=== PATIENT | male | born 1960 | race Caucasian/White ===

== ENCOUNTER 2016-10-01 07:37 | Inpatient (IN) | payer MEDICARE ==
--- NOTE | ~2016-10-01 | BMI ---
[facility] Nutrition Therapy DATE: 10/04/16 Patient: STACIA SANTANA Physician: ANAHI Address: [address] [place] [address] Room/Bed: [address], Zip: [place] [address] Admit Date: 10/01/16 Date of : 60 Height: 5 9 Weight: 268 122 HIGH BMI NOTE: DX: 56 YO MALE ADMITTED FOR NEW ONSET AFIB ANTHROPOMETRICS: HT: 69" WT: 132 KG BMI: 43 INTERVENTION: 1. HEART HEALTHY/ RENAL/ LOW POTASSIUM DIET RECOMMENDATIONS: 1. CONTINUE CURRENT DIET TOLERATED IN ORDER TO PROMOTE GRADUAL WEIGHT LOSS. Respectfully, TISHA NARAYAN RD, LD Food and Nutritional Services [facility] cc: client file
--- NOTE | ~2016-10-01 | US136 ---
[facility] A Service of [facility] & [facility] RADIOLOGY TEXT RESULTS PATIENT: STACIA SANTANA LOCATION: [address] : 60 UNIT #: [id number] AGE: [address]: Goran Garland MD SEX: M ORDER DR: [id number] [facility] [address] [facility]. [place], [place] [address] [id number] I MR#: [id number] Acc #: [id number] NAME: STACIA SANTANA : 1960 SEX: M STUDY DATE/TIME: 10/03/2016 12:20 UNIT: [facility] ROOM: [facility] STUDY DESCRIPTION: US U/L Ext Art Study Ltd Bilat Attending Physician: Goran Garland M.D. Ordering Physician: Ricardo Nolen M.D. Primary Care Physician: Primary Care Physician No MEDICAL IMAGING REPORT This report is preliminary unless electronic signature is present EXAM Bilateral ankle-brachial indices, 10/03/2016 HISTORY Foot ulcers. Diabetes. TIA 7 years ago. Neuropathy. FINDINGS The patient has a fistula in the right arm and two IVs in the left arm and hence a brachial pressure could not be obtained. Waveforms in the right ankle at the dorsalis pedis are biphasic and dampened waveforms are seen in the left dorsalis pedis. Posterior tibial artery waveforms could not be obtained. No signals could be obtained at the posterior tibial arteries. Pressure at the dorsalis pedis is 106 mmHg and toe pressure on the right is 73 mmHg. On the left side, the dorsalis pedis pressure is non-compressible and great toe pressure is 58. IMPRESSION This is a limited study because of inability to check the blood pressure in the upper arms. Waveforms indicate possibly mild to moderate disease in the right side and moderate disease in the left side. The vessels are noncompressible at the left ankle. Toe pressures indicate adequate perfusion in the right foot and diminished perfusion in the left foot. Clinical correlation recommended. Dictated by... Conor Gracia M.D. THIS IS AN ELECTRONICALLY VERIFIED REPORT Conor Gracia M.D. at 10/05/2016 9:07 AM Marva TD: 10/04/2016 19:19 [facility]. [facility] A Service of [facility] RADIOLOGY TEXT RESULTS PATIENT: STACIA SANTANA LOCATION: [address] : 60 UNIT #: [id number] AGE: [address]: Goran Garland MD SEX: M ORDER DR: JOB #: [id number] MEDICAL IMAGING REPORT COPY
--- NOTE | ~2016-10-01 | CT71 ---
[facility] A Service of [facility] RADIOLOGY TEXT RESULTS PATIENT: STACIA SANTANA LOCATION: [facility] 571-01 : 60 UNIT #: [id number] AGE: [address]: Goran Garland MD SEX: M ORDER DR: [id number] [facility] [address] [facility]. [place], [place] [address] [id number] I MR#: [id number] Acc #: [id number] NAME: STACIA SANTANA : 1960 SEX: M STUDY DATE/TIME: 10/02/2016 19:06 UNIT: [facility] ROOM: [facility] STUDY DESCRIPTION: CT Head Wo Contrast Attending Physician: Goran Garland M.D. Ordering Physician: Atiya Lowry M.D. Primary Care Physician: No Primary Care Physician MEDICAL IMAGING REPORT This report is preliminary unless electronic signature is present EXAM CT brain without contrast HISTORY Fell and hit left side of head yesterday. Left side head pain today. TECHNIQUE This CT exam was performed with one or more of the following radiation dose reduction techniques: automatic exposure control, adjustment of mA and/or kV according to patient size, and iterative reconstruction. FINDINGS CT brain without contrast is partly limited by motion. Moderate chronic ischemic changes in the deep white matter bilaterally. Mild generalized cerebral cortical atrophy. No intracranial hemorrhage, mass, or edema. No midline shift or extraaxial fluid collection. Opacification of several inferior left and right mastoid air cells. Mild mucosal thickening in the posterior right maxillary sinus. IMPRESSION 1. No acute findings. 2. Mild generalized cerebral cortical atrophy and chronic ischemic changes in the deep white matter bilaterally. Dictated by... Michele Smart M.D. THIS IS AN ELECTRONICALLY VERIFIED REPORT Michele Smart M.D. at 10/03/2016 1:58 PM TEODORO/renan TD: 10/03/2016 12:13 [facility] A Service of [facility] RADIOLOGY TEXT RESULTS PATIENT: STACIA SANTANA [facility] [place] [address] [facility] [id number] : 60 UNIT #: [id number] AGE: [address]: Goran Garland MD SEX: M ORDER DR: KURT #: [id number] MEDICAL IMAGING REPORT COPY
--- NOTE | ~2016-10-01 | DS ---
Unit #: [id number] #: [id number] Patient: STACIA SANTANA [id number] [address] [address] [id number] I MR#: [id number] NAME: STACIA SANTANA ROOM: [facility] Age: 56 Sex: M Admission Date: 10/01/2016 : 1960 Discharge Date: 10/13/2016 Attending Physician: Goran Garland M.D. Primary Care Physician: Mila Primary Care Physician DISCHARGE SUMMARY To rehab facility on 10/13/2016 after hemodialysis. Patient has a pretty length stay in the hospital. DISCHARGE DIAGNOSES 1. Cardiogenic shock, which is resolved. 2. End stage cardiomyopathy with ejection fraction of 10% to 15%. 3. End stage renal disease on hemodialysis. 4. Hypoglycemia with diagnosis of diabetes mellitus. 5. Atrial fibrillation with controlled right on anticoagulation therapy with Coumadin. 6. Angina pectoris with history of coronary artery disease, status post percutaneous coronary intervention and stent placement about 7 years ago. 7. History of deep venous thrombosis and pulmonary embolism. Patient has an inferior vena cava filter. 8. 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 9. Peripheral vascular disease. 10. History of previous stroke with minimal residual. 11. Over anticoagulation on admission, which is resolved. 12. History of chronic wounds. 13. Obstructive sleep apnea but unable to use CPAP. 14. Morbid obesity with body mass index of 42. 15. Reformed smoker. 16. Headache on admission, status post CT scan, which was normal, which is improved. DISCHARGE MEDICATIONS 1. Hydrocodone/acetaminophen 5/325 q.8 p.r.n. 2. Protonix 40 mg b.i.d. 3. ProAmatine 5 mg p.o. 3 times a day with meal. 4. Milk of magnesia 30 mL p.o. daily. 5. Colace 100 mg twice a day. 6. Lopressor 12.5 mg twice a day. 7. Benadryl 25 mg q.8 p.r.n. 8. Coumadin 2.5 mg daily. 9. Bactroban topically twice a day. CONSULTANTS DURING HOSPITALIZATION Dr. Jose from cardiology services; Dr. Duncan Reid from vascular surgery; Dr. Teran and Dr. Vera from pulmonary services; Dr. Nolen from ortho services. Unit #: [id number] #: [id number] Patient: STACIA SANTANA LAB WORKUP ON DISCHARGE Sodium 136, potassium 4.6, chloride 101, BUN 37, creatinine 3.6, glucose 148. PT/INR is 19.7 and 1.8. WBC 12.6, hemoglobin 10.5, hematocrit 34.3, platelet count of 157. C. diff which was done on 10/11/2016 was negative. PROCEDURE PERFORMED DURING HOSPITALIZATION Echocardiogram, which was done on 10/01/2016, which shows left ventricle systolic function is severely reduced with left ventricular ejection fraction of 10%, moderately dilated left atrium, aortic stenosis, small pericardial effusion versus fat tissue. HOSPITAL COURSE Please note, patient was admitted on 10/01/[address] Garland. Please refer to H and P for history and physical. The patient had a fall at home. That is why he came to the hospital and was found to be in atrial fibrillation with rapid ventricular rate. Dr. Duff was consulted. Patient's Coumadin was held because it was very much elevated on admission. The patient was started on amiodarone. 2D echocardiogram was done, which showed ejection fraction of 10% to 15%. On 10/02/2016 the patient's amiodarone had been increased and 2 units of fresh frozen plasma was given because of elevated INR. The patient was transferred to ICU because of cardiogenic shock. IV dobutamine was started. Metoprolol was discontinued at this time. Dr. Teran was consulted and placed the lines. Patient was in ICU for a few days and he has decide for DNR status and does not want further workup. Patient does have a history of end stage renal disease and continued to have hemodialysis done as per renal. The patient will need to schedule followup with Dr. Donny Koroma after discharge. May need his (1) revision. Patient had headache on admission and because of elevated INR, CT scan of the head was done, which was negative. Patient seems to be stable at this time. Patient was also consulted by Dr. Nolen for left lower extremity cellulitis and dry gangrene. The patient does have a third toe dry gangrene with ulcers. He has peripheral vascular disease. Per cardiology patient is high risk for any surgical procedure. Patient may need to continue wound care and follow with Dr. Nolen as needed. The patient is stable at this and is being discharged to rehab facility. PHYSICAL EXAMINATION VITAL SIGNS: On discharge blood pressure 113/43, respiratory rate 18, pulse is 87, temperature 97.5. CHEST: Has decreased air entry bilateral. CVS: S1 and S2 positive on (2) rhythm. ABDOMEN: Obese. EXTREMITIES: Edema is present. DISCHARGE INSTRUCTIONS 1. Patient is being discharge to rehab facility after hemodialysis today. 2. Medication as per med rec. 3. Dr. Galicia to follow the patient at rehab. 4. Continue hemodialysis as per renal. From what I understand, the patient will be using [employer] for transportation. 5. PT and OT at rehab. 6. PT/INR to be done in a.m. Unit #: [id number] #: [id number] Patient: STACIA SANTANA 7. CBC and BMP in two to three days. 8. Patient's code status is DNR. Dictated by... Atiya Lowry M.D. Itz TD: 10/13/2016 12:58 JOB #: [id number] DISCHARGE SUMMARY X Atiya Lowry MD X DISCHARGE SUMMARY
--- NOTE | ~2016-10-01 | CR72 ---
[facility] A Service of [facility] & [facility] RADIOLOGY TEXT RESULTS PATIENT: STACIA SANTANA LOCATION: [address] : 60 UNIT #: [id number] AGE: [address]: Goran Garland MD SEX: M ORDER DR: [id number] [facility] [address] [facility]. [place], [place] [address] [id number] I MR#: [id number] Acc #: [id number] NAME: STACIA SANTANA : 1960 SEX: M STUDY DATE/TIME: 10/03/2016 17:05 UNIT: [facility] ROOM: [facility] STUDY DESCRIPTION: CR Chest Single View Portable Attending Physician: Goran Garland M.D. Ordering Physician: Andrea Teran M.D. Primary Care Physician: Primary Care Physician No MEDICAL IMAGING REPORT This report is preliminary unless electronic signature is present EXAM Portable chest HISTORY Line placement today. FINDINGS Transversely oriented large bore catheter projected over the upper mediastinum extends from the left upper chest to the right upper mediastinum. The tip overlies the level of the right central brachiocephalic vein. There is a wall stent in the upper mediastinum extending from approximately the level of the central left brachiocephalic vein to the upper SVC. Low lung volumes. No pulmonary infiltrates. No significant change compared to 10/01/2016. Dictated by... Michele Smart M.D. THIS IS AN ELECTRONICALLY VERIFIED REPORT Michele Smart M.D. at 10/04/2016 2:18 PM TEODORO/brown TD: 10/04/2016 08:18 JOB #: [id number] MEDICAL IMAGING REPORT COPY
--- NOTE | ~2016-10-01 | EKG ---
PATIENT: MAX, STACIA UNIT #: [id number] Ventricular Rate: 119 BPM Atrial Rate: 127 BPM QRS Duration: 100 ms Q-T Interval: 320 ms QTC Calculation(Bezet): 450 ms Calculated R Rowley: 23 degrees Calculated T Rowley: 170 degrees Diagnosis Line: Atrial fibrillation with rapid ventricular Diagnosis Line: response Diagnosis Line: ST and T wave abnormality, consider lateral ischemia Diagnosis Line: Abnormal ECG Diagnosis Line: When compared with ECG of 08-JUL-2016 09:03, Diagnosis Line: Atrial fibrillation has replaced Sinus rhythm Diagnosis Line: Nonspecific T wave abnormality now evident in Diagnosis Line: Inferior leads Diagnosis Line: T wave inversion more evident in Anterolateral Diagnosis Line: leads Diagnosis Line: [facility] Diagnosis Line: Confirmed by SARA BULLARD MD ([id number]) on 10/02/2016 Diagnosis Line: 5:54:46 PM INTERPRETING MD: JUAN MIGUEL GUIDRY
--- NOTE | ~2016-10-01 | OR ---
Unit #: [id number] #: [id number] Patient: STACIA SANTANA [id number] [address] [address] [id number] I MR#: [id number] NAME: STACIA SANTANA ROOM: [facility] Date of Procedure: 10/03/2016 Admission Date: 10/01/2016 Surgeon: Inna Teran M.D. : 1960 Attending Physician: Goran Garland M.D. Primary Care Physician: Mila Primary Care Physician PROCEDURE OPERATIVE NOTE PREOPERATIVE DIAGNOSIS Cardiogenic shock. PROCEDURE PERFORMED Left femoral central venous catheter placement with ultrasound guidance. INDICATION FOR PROCEDURE Cardiogenic shock. COMPLICATIONS None. DESCRIPTION OF THE PROCEDURE An informed consent was obtained from the patient himself after explaining the benefit and risks of this procedure. The patient was prepped and positioned in proper way and chlorhexidine was applied to the left femoral area. Then, with the ultrasound guidance, a needle was inserted in the left femoral vein until blood flow was obtained and a guidewire was inserted and the needle was removed. Then, a dilator was used to create a tract and then the catheter was inserted over the guidewire and the guidewire was removed. The catheter was flushed appropriately and sutured in place. No need for chest x-ray as this is a femoral line. Dictated by... Inna Teran M.D. EA/lashell TD: 10/04/2016 06:01 JOB #: [id number] Unit #: [id number] #: [id number] Patient: STACIA SANTANA PROCEDURE OPERATIVE NOTE X INNA SALAZAR MD X PROCEDURE OPERATIVE NOTE
--- NOTE | ~2016-10-01 | CR7 ---
[facility] A Service of [facility] / [facility] RADIOLOGY TEXT RESULTS PATIENT: STACIA SANTANA LOCATION: [place] [address] : 60 UNIT #: [id number] AGE: [address]: Goran Garland MD SEX: M ORDER DR: [id number] [facility] [address] [facility]. [place], [place] [address] [id number] I MR#: [id number] Acc #: [id number] NAME: STACIA SANTANA : 1960 SEX: M STUDY DATE/TIME: 10/13/2016 20:51 UNIT: [facility] ROOM: [facility] STUDY DESCRIPTION: CR Abdomen Single AP View Attending Physician: Goran Garland M.D. Ordering Physician: Goran Garland M.D. Primary Care Physician: Primary Care Physician No MEDICAL IMAGING REPORT This report is preliminary unless electronic signature is present EXAM Abdomen single view HISTORY Rule out small bowel obstruction. Abdominal pain started today. COMMENT 5 supine films of the abdomen are submitted for review. Study is limited by obesity. Please be aware that supine imaging does not evaluate for bowel obstruction since it does not evaluate for air fluid levels. Study won't evaluate for free air. There is probably colonic gas and stool at least to the sigmoid colon level possibly to the level of the rectum. No loops of bowel with gaseous distention are appreciated. No suspicious findings for obstruction on the supine images. Patient has an IVC filter and right upper quadrant surgical clips. Vascular calcifications are present. Visualized heart is enlarged and there is patchy airspace disease lower lungs. IMPRESSION These films are limited by the patient's morbid obesity. 5 supine images were obtained to cover the abdomen. Without an upright film, I cannot evaluate for free air or air-fluid level. No distended loops of bowel are definitely seen. Dictated by... Regina Nunn M.D. THIS IS AN ELECTRONICALLY VERIFIED REPORT [facility] A Service of [facility] / [facility] RADIOLOGY TEXT RESULTS PATIENT: STACIA SANTANA LOCATION: [facility]04-01 : [birth year] UNIT #: [id number] AGE: [address]: Goran Garland MD SEX: M ORDER DR: Regina Nunn M.D. at 10/14/2016 12:58 PM SAMANTHA/neo TD: 10/14/2016 10:51 JOB #: [id number] MEDICAL IMAGING REPORT COPY
--- NOTE | ~2016-10-01 | CO ---
Unit #: [id number] #: [id number] Patient: STACIA SANTANA [id number] [address] [address] [id number] I MR#: [id number] NAME: STACIA SANTANA ROOM: [facility] Age: 56 Sex: M Admission Date: 10/01/2016 : 1960 Attending Physician: Goran Garland M.D. Primary Care Physician: Mila Primary Care Physician Consultation Date: 10/03/2016 CONSULTATION REPORT REASON FOR CONSULT ICU management. HISTORY OF PRESENT ILLNESS This is a 56-year-old male with a past medical history significant for end stage renal disease and severe coronary artery disease who presented to the ICU as a transfer from the floor after he was found hypotensive and lethargic. The patient also has a history of DVT/PE and he is chronically on Coumadin. Upon presentation, his INR was 8 and currently it is in the range between 4 and 5. Earlier today, the patient received some narcotics and by the time he was evaluated by cardiology service he was noted to be hypotensive and lethargic. The patient was transferred to our ICU. His oxygen saturation was in the mid 70s but he was in no acute distress which probably explained by poor circulation at the pulse oximeter probe. Due to his history of severe vascular disease and the inaccurate blood pressure measurement, I elected to place a central line and arterial line for better monitoring of his vital signs. The patient denied any fever, chills or night sweats. No chest pain, no cough. The patient is just progressively getting fatigued and tired. He stated that at baseline he is able to get up and walk. He goes to [employer] and sometimes to baseball games. REVIEW OF SYSTEMS Twelve point review of systems were obtained and were negative except for what was mentioned in the HPI. PAST MEDICAL HISTORY 1. End stage renal disease. 2. Severe coronary artery disease. 3. Stroke with minimal residual. 4. PE/DVT. 5. Hypertension. 6. Diabetes. 7. Severe peripheral vascular disease. 8. Obstructive sleep apnea. PAST SURGICAL HISTORY 1. Multiple AV shunts and revision. Unit #: [id number] #: [id number] Patient: STACIA SANTANA 2. Cholecystectomy. 3. IVC filter. 4. PCI and stent about seven years ago. HOME MEDICATIONS 1. Coumadin. 2. Glucotrol. 3. Bactroban. 4. Clindamycin. 5. Librax. ALLERGIES Naproxen, IV contrast. SOCIAL HISTORY He ambulates with a cane, sometimes walker. He quit smoking in 1988. No history of drug abuse. FAMILY HISTORY Coronary artery disease. PHYSICAL EXAMINATION GENERAL: The patient is ill-appearing. VITAL SIGNS: After placing arterial line, showing a blood pressure of 127/72. HEENT: Atraumatic, normocephalic. PERRLA, EOMI. NECK: Supple. No JVD, no lymphadenopathy. CHEST: Decreased breath sounds bilaterally. HEART: S1, S2. No murmur, gallops or rubs. ABDOMEN: Soft, nontender. Bowel sounds positive. No hepatosplenomegaly. EXTREMITIES: Chronic venous stasis changes in the lower extremities. SKIN: No rashes. 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 No focal weakness. DIAGNOSTIC STUDIES LABORATORY: ABG - 7.32/51/222. Creatinine 6.7, sodium 133, white blood count 14.2. IMAGING: Chest x-ray didn't reveal any clear infiltrate to me. ASSESSMENT 1. Shock, likely cardiogenic. 2. Severe peripheral vascular disease. 3. Pulmonary embolus/deep venous thrombosis. 4. Atrial fibrillation with rapid ventricular response. 5. End stage renal disease. 6. Diabetes. 7. Hypertension. PLAN 1. The patient is ill-appearing and critical. Discussed code status with him and is a Full Code at this point. 2. Arterial line is measuring normal blood pressure. Will try to wean dopamine off as tolerated. 3. Bronchodilator and mucolytics. 4. Continue current antibiotics pending further sepsis workup. Unit #: [id number] #: [id number] Patient: STACIA SANTANA 5. Diabetes and blood pressure management. Dictated by... Marianna Gibson TD: 10/04/2016 06:13 JOB #: [id number] CONSULTATION REPORT X INNA SALAZAR MD CONSULTATION REPORT
--- NOTE | ~2016-10-01 | CR126 ---
[facility] A Service of [facility] & [facility] RADIOLOGY TEXT RESULTS PATIENT: STACIA SANTANA LOCATION: [address] : [birth year] UNIT #: [id number] AGE: [address]: Goran Garland MD SEX: M ORDER DR: [id number] [facility] [address] [facility]. [place], [place] [address] [id number] I MR#: [id number] Acc #: [id number] NAME: STACIA SANTANA : 1960 SEX: M STUDY DATE/TIME: 10/03/2016 15:08 UNIT: [facility] ROOM: [facility] STUDY DESCRIPTION: CR Foot Complete Min 3 View Lt Attending Physician: Goran Garland M.D. Ordering Physician: Ricardo Nolen M.D. Primary Care Physician: No Primary Care Physician MEDICAL IMAGING REPORT This report is preliminary unless electronic signature is present EXAM Left foot series 10/03/2016 HISTORY New onset atrial fibrillation with RVR, ulcers. New onset. Cough. Central line placement through the femoral artery, 3 days, fell, ulcers, pain, severe soft tissue swelling, soft tissue breakdown. FINDINGS AP, lateral and oblique radiographs of the left foot are presented. Diminished bony mineralization. No displaced fracture. The joint spaces appear intact. There is no indication of traumatic malalignment. Small plantar calcaneal spur. Extensive atherosclerotic arterial calcifications. Soft tissue swelling suggested dorsal aspect of the baj-qg-jrgopf foot. No soft tissue defect, subcutaneous air or radiodense foreign body. Dictated by... Roni Juarez M.D. THIS IS AN ELECTRONICALLY VERIFIED REPORT Roni Juarez M.D. at 10/04/2016 4:28 PM GETACHEW/lashell TD: 10/04/2016 09:25 JOB #: [id number] MEDICAL IMAGING REPORT COPY
--- NOTE | ~2016-10-01 | CO ---
Unit #: [id number] #: [id number] Patient: STACIA SANTANA [id number] [address] [address] [id number] I MR#: [id number] NAME: STACIA SANTANA ROOM: [facility]3 Age: 56 Sex: M Admission Date: 10/01/2016 : 1960 Attending Physician: Goran Garland M.D. CONSULTATION REPORT CHIEF COMPLAINT Left third toe gangrene. HISTORY OF PRESENT ILLNESS This is a 56-year-old male with multiple medical problems to include, end-stage renal disease, requiring dialysis; coronary artery disease, status post stent; diabetes; stroke; atrial fibrillation; history of pulmonary embolism. He is admitted for evaluation of multiple falls. During his hospitalization, he was noted to have gangrene of the left third toe and orthopedic consultation is requested. PAST MEDICAL HISTORY Remarkable for morbid obesity, coronary artery disease, diabetes, end-stage renal disease, hypertension, stroke, history of pulmonary embolism. PAST SURGICAL HISTORY IVC filter placement, cholecystectomy, arteriovenous shunt for dialysis, cardiac catheterization, left leg skin graft. HOME MEDICATIONS Coumadin, Glucotrol, Lotrisone cream, Bactroban, Diflucan, nystatin, probiotic, Levaquin, calcium acetate. ALLERGIES Naprosyn and contrast dye. SOCIAL HISTORY The patient lives at home with his morbidly obese brother. He denies tobacco or alcohol use. FAMILY HISTORY Unremarkable. PHYSICAL EXAMINATION GENERAL: This is an obese male, in no acute distress. He is alert, oriented, and cooperative. VITAL SIGNS: Height 5 feet 9 inches, weight 287 pounds. He is afebrile with stable vital signs. Evaluation of the left leg demonstrates marked venous stasis changes in the left leg with brawny edema. Pulses are not palpated. There was dry gangrene at the distal half of the third toe. There was also a dry gangrenous ulcer on the dorsal aspect of the second toe PIP joint as well as the tip of the hallux. The patient also has a necrotic ulcer on the Unit #: [id number] #: [id number] Patient: STACIA SANTANA posteromedial aspect of the calcaneus measuring about 1 cm. Sensation is decreased in a global distribution, but is partially intact. DIAGNOSTIC STUDIES IMAGING STUDIES: No x-rays are available for my review. LABORATORY RESULTS: Showed hemoglobin of 11.4, hematocrit 36.9, white blood cell count 14,200. IMPRESSION 1. Dry gangrene of left third toe with dry ulcerations at first and second toe. 2. Peripheral vascular disease. 3. End-stage renal disease. 4. Morbid obesity. 5. Marginal ambulator. The patient spends most of his time in an electric wheelchair. PLAN 1. Check left foot x-rays. 2. Arterial Dopplers. 3. We will follow during this hospitalization. The patient will most likely require amputation of a portion of the third toe and possibly first and second toes. We will make decisions based on his blood supply to the left leg. Dictated by.Marianna Correa/leighann TD: 10/03/2016 16:27 JOB #: [id number] CONSULTATION REPORT X Irma Nolen MD X CONSULTATION REPORT
--- NOTE | ~2016-10-01 | CR72 ---
[facility] A Service of [facility] & [facility] RADIOLOGY TEXT RESULTS PATIENT: STACIA SANTANA LOCATION: [facility] : 60 UNIT #: [id number] AGE: [address]: Goran Garland MD SEX: M ORDER DR: [id number] [facility] [address] [facility]. [place], [place] [address] [id number] I MR#: [id number] Acc #: [id number] NAME: STACIA SANTANA : 1960 SEX: M STUDY DATE/TIME: 10/07/2016 08:14 UNIT: [facility] ROOM: [facility] STUDY DESCRIPTION: CR Chest Single View Portable Attending Physician: Goran Garland M.D. Ordering Physician: Miller Duff M.D. Primary Care Physician: Primary Care Physician No MEDICAL IMAGING REPORT This report is preliminary unless electronic signature is present EXAM Chest portable 10/07/2016 0814 hours HISTORY 6-day history of shortness of air, cough and congestion. History of atrial fibrillation and respiratory failure. COMPARISON 10/03/2016 FINDINGS Single upright portable film demonstrates low lung volumes. There is a transversely oriented catheter extending from the left upper chest to the right upper chest with distal tip projecting over the upper SVC just inferior to the medial right clavicle unchanged from 10/03/2016. There is an obliquely oriented wall stent posterior to this which is also unchanged. There is stable cardiomegaly and tortuous aorta. There is perihilar and basilar vascular crowding with interstitial prominence favored to be a manifestation of low lung volumes. It is difficult to exclude an element of interstitial edema given this appearance. No effusions. IMPRESSION 1. Low lung volume film with stable cardiomegaly and tortuous aorta. There is perihilar and basilar vascular crowding with interstitial prominence. The interstitial prominence is favored to be a manifestation of low lung volumes although in this setting it is difficult to exclude mild edema. There is no effusion. 2. Stable positioning of transversely oriented catheter over the superior mediastinum. Dictated by... Daksha Godoy M.D. [facility] A Service of [facility] & [facility] RADIOLOGY TEXT RESULTS PATIENT: STACIA SANTANA LOCATION: [place] [address] : [birth year] UNIT #: [id number] AGE: [address]: Goran Garland MD SEX: M ORDER DR: THIS IS AN ELECTRONICALLY VERIFIED REPORT Daksha Godoy M.D. at 10/07/2016 11:43 AM Ramiro TD: 10/07/2016 09:20 JOB #: [id number] MEDICAL IMAGING REPORT COPY
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
--- NOTE | ~2016-10-01 | A ---
[facility] Nutrition Therapy DATE: 10/06/16 Patient: STACIA SANTANA Physician: ANAHI Address: [address] [place] [address] Room/Bed: [address], Zip: [place] [address] Admit Date: 10/01/16 Date of : 60 Height: 5 9 Weight: 279 127 NUTRITIONAL ASSESSMENT: REASON: EATING POORLY PER RN REPORT 56 yo male admitted for new onset Afib with RVR PMH: ESRD on HD, CAD s/p stent, stroke, HTN, DM, PVD, GENNA, cholecystectomy, EF <10% (per RN report), chronic wounds Anthropometrics: Ht: 69" Wt: 132 kg BMI: 43 Labs: Gluc 55 BUN 35 Creat 4.7 Alb 2.6 Phos 5.1 Accuchecks 64-95 HgbA1C 8.3 (from 10/03) GFR 13.8 Meds: Zofran, novolog, glucotrol, pepcid I/O & Bowel function: 1582/0, last BM Skin Integrity: Venous stasis Necrosis/ cellulitis left lower leg and foot Skin tear BUE/ right calf Excoriation/ open area to groin Edema: 2+ BLE 1+ hips/ abdomen/ trunk Estimated Nutrition Needs: Increased protein needs due to HD, skin breakdown. Assessment: Chart reviewed, events noted. Pt admitted for new onset Afib, with h/o multiple medical issues as noted above. RN reported to RD at rounds that the pt has not been eating for the past couple of days. Pt was ordered a heart healthy/ renal/ low K+ diet, which caused him to be unable to ordered the foods he wants. MD changed the pt to a regular diet to promote PO intake. Per RN report, the pt ate some oatmeal for breakfast, and consumed one piece of fried fish for lunch, which his family brought to him from [facility]. Per MD note, the pt cannot ambulate and would require toe amputations. Pt may able to tolerate the surgery well per RN report, due to his low EF and kidney function. Pt requested hospice consult for education visit, to explore his options. Low blood sugars noted. RD spoke with the pt and one of his family members at bedside. 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 Pt c/o heart burn, and RD discussed foods to avoid that may aggervate this. Pt only wishes to have certain foods, and reports having a poor appetite. Pt is unsure of any recent weight loss. RD suggested several nutritional supplements, and the pt [facility] Nutrition Therapy DATE: 10/06/16 Patient: STACIA SANTANA Physician: ANAHI Address: [address] [place] [address] Room/Bed: [address], Zip: [place] [address] Admit Date: 10/01/16 Date of : 60 Height: 5 9 Weight: [address] encouraged adequate protein/ calorie intake. Pt and family voiced understanding. Dx: Inadequate protein-energy intake RT decreased appetite AEB minimal intake reported by RN and family. Intervention: 1. Regular diet Monitoring, Evaluation and Goals: 1. Oral intake; tolerate >50-75% meals 2. Labs; WNL 3. Weight; prevent unintentional weight loss 4. Skin; promote healing 5. GI; promote bowel regularity Recommendations: 1. Continue regular diet per MD orders. 2. Pt would benefit from Nepro supplements BID; however, he declined all supplements offered. Pt is at moderate nutritional risk. RD will follow hospital course. Respectfully, TISHA NARAYAN, RD, LD [facility] cc: client file
--- NOTE | ~2016-10-01 | FU ---
[facility] Nutrition Therapy DATE: 10/11/16 Patient: STACIA SANTANA Physician: ANAHI Address: [address] [facility] Room/Bed: [address] [place] [address], Zip: [place] [address] Admit Date: 10/01/16 Date of : 60 Height: 5 9 Weight: 277 125.7 NUTRITION MONITORING/FOLLOW-UP: Reason: Nutrition follow-up Anthropometrics: Ht: 69", admission wt: 132 kg, current wt: 125.7 kg Labs: Glucose 22, POC 33-145, BUN 55, Creat 5.3, A1C 8.3 (10/03), GFR 12.0, Na/K WNL Meds: Zofran prn, Novolog (low SSI), PPI, Milk of Mg, Colace, Mag-al GI: LBM 10/11 Skin: Issues noted Estimated Nutrition Needs: Increased needs due to HD Assessment: Chart reviewed, events noted. Patient is on 2L nasal cannula, getting dialysis at time of RD visit to room. RD previously assessed due to poor oral intake. Patient on regular diet with 1500 ml fluid restriction. Hypoglycemic episodes noted. RN states patient ate 50% of breakfast this AM, unsure why hypoglycemia occured. Holding insulin with hypoglycemia, given D50 to bring glucose back up. RD suggested Ensure pudding to the patient per RN recs, but patient kept refusing saying "I have Jack cups to bring up my blood sugar." He also stated he did not care and that I could leave him alone. Previous nutrition goals not met, nutrition dx remains. Patient no longer appropriate to follow, will see after 10 days. See recs below. Dx: Inadequate protein energy intake r/t decreased appetite AEB PO intake 50% or less - ACTIVE, NO IMPROVEMENT Intervention: None at this time Monitoring, Evaluation and Goals: NOT MET 1. PO > 75% of meals. 2. Prevent unintentional weight loss. 3. Glucose WNL. Monitor: Per protocol, criteria to determine if above goals met Recommendations: 1. Continue regular diet, fluids per MD. Encourage adequate kcal/protein intake. Patient has continued to refuse all oral nutrition supplements at this time. [facility] Nutrition Therapy DATE: 10/11/16 Patient: STACIA SANTANA Physician: ANAHI Address: [address] [facility]/Bed: [address] [place] [address], Zip: [place] [address] Admit Date: 10/01/16 Date of : 60 Height: 5 9 Weight: 277 125.7 2. Hold insulin and treat hypoglycemia as needed. Treat with 15-30g carbs and recheck after 15 mins. If glucose still < 70 treat with another 15g carbs until > 70. Suggest endocrinology consult. 3. Please consult with any further nutritional needs. Status: Mild nutrition risk, will see again after 10 days Respectfully, Mary Lackey RD, LD Food and Nutritional Services [facility] cc: client file
--- NOTE | ~2016-10-01 | CR206 ---
[facility] A Service of [facility] & [facility] RADIOLOGY TEXT RESULTS PATIENT: STACIA SANTANA LOCATION: [facility] [id number] : 60 UNIT #: [id number] AGE: [address]: Goran Garland MD SEX: M ORDER DR: [id number] [facility] [address] [facility] [place] [facility]. [place], [place] [address] [id number] I MR#: [id number] Acc #: [id number] NAME: STACIA SANTANA : 1960 SEX: M STUDY DATE/TIME: 10/01/2016 7:43 UNIT: [facility] ROOM: 94603 STUDY DESCRIPTION: CR Pelvis 1 or 2 Views Attending Physician: Goran Garland M.D. Ordering Physician: Amol Young M.D. Primary Care Physician: No Primary Care Physician MEDICAL IMAGING REPORT This report is preliminary unless electronic signature is present EXAM Pelvis HISTORY Pelvic pain after falling earlier today. TECHNIQUE A single view of the pelvis was obtained. FINDINGS AP, supine examination of the pelvis shows satisfactory mineralization of the bony pelvis. The sacroiliac joints are normal. There is no indication of congenital defect, fracture, or dislocation at the articular anatomy of the sacral segments or of the hip joints. No malignant, lytic, or blastic change is present. IMPRESSION Normal pelvis. Dictated by... Rick Eagle M.D. THIS IS AN ELECTRONICALLY VERIFIED REPORT Rick Eagle M.D. at 10/01/2016 3:26 PM CONORF/rené TD: 10/01/2016 10:44 JOB #: [id number] MEDICAL IMAGING REPORT COPY
--- NOTE | ~2016-10-01 | OR ---
Unit #: [id number] #: [id number] Patient: STACIA SANTANA [id number] [address] [address] [id number] I MR#: [id number] NAME: STACIA SANTANA ROOM: [facility] Date of Procedure: 10/03/2016 Admission Date: 10/01/2016 Surgeon: Inna Teran M.D. : 1960 Attending Physician: Goran Garland M.D. Primary Care Physician: Mila Primary Care Physician PROCEDURE OPERATIVE NOTE PROCEDURE PERFORMED Left femoral arterial line placement with ultrasound guidance. INDICATION FOR PROCEDURE Vasculopathy and cardiogenic shock. DESCRIPTION OF THE PROCEDURE An informed consent was obtained from the patient after explaining the benefit and risk of this procedure. The patient's left groin was prepped and cleaned with chlorhexidine and then a needle was inserted in the left femoral artery until blood flow was obtained. Then, a guidewire was inserted and the needle was removed. Then, a catheter was inserted over the guidewire and the guidewire was removed eventually. A good waveform of the arterial line was obtained on the monitor and the line was sutured in place with no complication. Dictated by... Inna Teran M.D. EA/lashell TD: 10/04/2016 06:15 JOB #: [id number] PROCEDURE OPERATIVE NOTE X INNA SALAZAR MD PROCEDURE OPERATIVE NOTE
--- NOTE | ~2016-10-01 | US83 ---
[facility] A Service of [facility] RADIOLOGY TEXT RESULTS PATIENT: STACIA SANTANA LOCATION: [facility] [address] : 60 UNIT #: [id number] AGE: [address]: Goran Garland MD SEX: M ORDER DR: [id number] [facility] [address] [facility]. [place], [place] [address] [id number] I MR#: [id number] Acc #: [id number] NAME: STACIA SANTANA : 1960 SEX: M STUDY DATE/TIME: 10/11/2016 18:21 UNIT: [facility] ROOM: [facility] STUDY DESCRIPTION: US LE [employer] Attending Physician: Goran Garland M.D. Ordering Physician: Goran Garland M.D. Primary Care Physician: No Primary Care Physician MEDICAL IMAGING REPORT This report is preliminary unless electronic signature is present EXAM Left lower extremity doppler. HISTORY Left lower extremity pain and left inguinal pain after physical therapy approximately 2-3 days ago. Left femoral arterial line. TECHNIQUE Grayscale, color Doppler, and spectral Doppler ultrasound of the left inguinal region was performed. COMPARISON STUDIES No priors are available for comparison. FINDINGS There is a large anechoic fluid collection in the left medial and proximal thigh. This collection measures 13.5 x 3.6 x 4.6 cm. There is arterial flow within the proximal portion of the fluid collection. This is felt to be a hematoma with associated pseudoaneurysm. IMPRESSION Large 13-cm hypoechoic collection in the proximal and medial aspect of the left thigh. There is some arterial blood flow within the proximal portion of the collection, indicating a component of a pseudoaneurysm associated with this proximal thigh hematoma. Dictated by... Rene Moreland M.D. THIS IS AN ELECTRONICALLY VERIFIED REPORT Rene Moreland M.D. at 10/13/2016 12:22 PM [facility] A Service [facility] RADIOLOGY TEXT RESULTS PATIENT: STACIA SANTANA LOCATION: [facility] 5504-01 : [birth year] UNIT #: [id number] AGE: [address]: Goran Garland MD SEX: M ORDER DR: Josias TD: 10/12/2016 16:51 JOB #: [id number] MEDICAL IMAGING REPORT COPY
--- NOTE | ~2016-10-01 | CO ---
Unit #: [id number] #: [id number] Patient: MAX,STACIA [id number] [address] [place], [place] [address] [id number] I MR#: [id number] NAME: STACIA SANTANA ROOM: 571 Age: 56 Sex: M Admission Date: 10/01/2016 : 1960 Attending Physician: Goran Garland M.D. Primary Care Physician: Doris Consultation Date: 10/01/2016 CONSULTATION REPORT REASON FOR CONSULTATION Atrial fibrillation with rapid ventricular response and chest pain. HISTORY OF PRESENT ILLNESS This is a 56-year-old white male with history of end-stage renal disease, had previous PCI and stents about 7 years ago. He has had a stroke about that time with minimal residual, is on chronic anticoagulation therapy with Coumadin for PE and DVT in the past had IVC filter. He is a diabetic, hypertension, obstructive sleep apnea, obesity, who came to the hospital after experiencing a fall and was unable to get up. According to the patient, he got up this morning about 7:30, he went to the bathroom and then he stood up and proceeded to walk and his legs got weak and gave out. He fell on his buttocks. He was unable to pull himself up. He lives with a brother, who also has some health issues, they had to call EMS. They evaluate the patient and felt like he should come to the hospital to be evaluated for any injuries or problems. According to the patient, he denied any acute injury and x-rays do not indicate any fractures. He denies any dizziness, presyncope, or syncopal episodes to precipitate the episode. He denies any palpitations. No shortness of breath. The patient is having occasional substernal chest pain that radiates up to the neck. He said that has been going off and on every 2 to 3 days for about the last 2 weeks. He denies any diaphoresis, nausea, vomiting, diarrhea or abdominal pain with the episodes. He feels like he has been having some GI symptoms after eating a couple of meals he felt some tightness, pressure in his mid sternal at mid epigastric area. He said it usually resolves after a few minutes. He misses dialysis this past Tuesday, because of the weather conditions and he is due to have dialysis today. In the emergency room, the patient's blood pressure was 101/66, heart rate was 128, respirations 24, temperature 97.6, O2 saturation was 95% on room air. His EKG indicated atrial fibrillation with rapid ventricular response with nonspecific changes. The patient's initial cardiac enzymes are negative. His WBCs were 17.3, his BUN was 63, creatinine 7.9, potassium 5.7, his sodium is down to 124, his INR is 5.9. The patient was given a dose of 10 mg of IV Cardizem and then started on a drip and it was stopped due to his heart rate got down in the 90s, his blood pressures 90s and low 100 systolically. Cardiology has been asked to assist with evaluation and management. The patient just states he has not had any cardiac workup since his stents about 7 years ago and also he has never been told that he has an atrial fibrillation. The patient had been in the hospital here at [facility] this past 07/2016 for an extensive scrotal and perineal cellulitis and he had an EKG at that time and he was in normal Unit #: [id number] #: [id number] Patient: STACIA SANTANA sinus rhythm. PAST MEDICAL HISTORY 1. End-stage renal disease, on hemodialysis. 2. Coronary artery disease. 3. History of PCI and stents 7 years ago done at [facility]. 4. Previous stroke with minimal residual. 5. Chronic anticoagulation, history of pulmonary emboli and DVT, status post IVC filter. 6. Hypertension. 7. Diabetes mellitus, type 2. 8. Peripheral vascular disease. 9. History of chronic wounds. 10. Obstructive sleep apnea, but is unable to use CPAP. 11. On 07/20/2016 hospitalized for extensive scrotal and perineal cellulitis and he is still having wound care, but has improved. 12. Obesity 290 pounds with a BMI of 42. 13. Reformed smoker. PAST SURGICAL HISTORY 1. Multiple AV shunts and revision. 2. Cholecystectomy. 3. IVC filter for PE and DVTs. 4. Status post PCI and stent about 7 years ago at [facility]. HOME MEDICATIONS Coumadin 3 mg p.o. daily, Glucotrol 5 mg p.o. b.i.d., Bactroban topically b.i.d. on his cellulitis, clindamycin 300 mg p.o. every 6 hours, Librax one capsule p.o. t.i.d. before meals. ALLERGIES Naproxen from Aleve and IV contrast dye. SOCIAL HISTORY The patient lives with his brother. He ambulates with a cane, sometimes a walker and he uses a motorized wheelchair. He quit smoking in 1988. No alcohol or illicit drug abuse. FAMILY HISTORY There is coronary artery disease in his most of the siblings and his father. There is a malignancy in his family. REVIEW OF SYSTEMS See details in HPI. PHYSICAL EXAMINATION GENERAL: Mr. Santana is a 56-year-old white male, in no acute respiratory distress. He is awake, alert, and answers questions appropriately. VITAL SIGNS: Blood pressure is 101/66, heart rate 96, respirations 18, temperature 97.6, O2 saturation is 94% on room air. NECK: Trachea midline. No thyromegaly or lymphadenopathy. Normal carotid upstrokes. No jugular venous distention. HEART: S1, S2. Regular rate and rhythm. Soft systolic murmur at left sternal border. LUNGS: Diminished, otherwise clear. ABDOMEN: Obese, slightly firm, nontender, positive bowel sounds present. EXTREMITIES: Pedal pulses are very weak. His femoral pulses are palpable, but very weak. He has 2+ pedal edema. Unit #: [id number] #: [id number] Patient: STACIA SANTANA DIAGNOSTIC STUDIES LABORATORY RESULTS: Glucose is 287, BUN 63, creatinine 7.9, eGFR is 7.6, sodium 124, potassium 5.7, chloride is 85, CO2 of 22, calcium is 9.2, magnesium is 2.1, total protein 6.5, albumin 2.7, bilirubin total is 0.7, AST 22, ALT 16, alkaline phosphatase is 116. WBC is 17.3, hemoglobin is 11.8, hematocrit is 37.0, and platelets are 152. Initial cardiac enzymes; CK-MB is 5.8, troponin is less than 0.05. WBC 12.3, hemoglobin 11.8, hematocrit 37.0, platelets 152. Strep screen is negative. IMAGING STUDIES: Chest x-ray shows shallow inspiratory effort, stable cardiomegaly, no active disease. X-ray of his pelvis was normal, no fractures. CARDIOVASCULAR STUDIES: EKG shows atrial fibrillation with ventricular rate of 119 beats per minute, nonspecific ST-T wave abnormalities in lateral leads, poor R-wave progression. IMPRESSION 1. Status post fall. 2. Atrial fibrillation with rapid ventricular response, age undetermined. 3. Angina pectoralis, history of coronary artery disease, percutaneous coronary intervention and stent about 7 years ago. 4. Previous stroke, minimal residual. 5. Acute kidney disease, end-stage renal disease, on hemodialysis. 6. History of deep vein thrombosis and pulmonary embolism. He has an inferior vena cava filter. 7. Diabetes mellitus, type 2. 8. Hypertension. 9. History of chronic wounds. 10. Obesity 290 pounds, BMI 42. 11. Obstructive sleep apnea, unable to use the CPAP. 12. Reformed smoker. PLAN 1. Cardiology consult to assist with evaluation and management. 2. The patient's heart rate is better controlled after he is being on Cardizem and has stopped, his blood that was staying a little low in the 90s and low 100s systolically. We will attempt to give a very low dose of beta-dhaval, metoprolol 12.5 mg p.o. b.i.d. and also amiodarone 400 mg p.o. b.i.d. The patient has been on anticoagulations, so we will try to convert possibly with loading doses of amiodarone. 3. Obtain TSH and T4 and evaluate. 4. We will obtain records from [facility] including the cardiac cath report, which entails PCI along with the latest 2D echo, EKG, and last H and P and discharge summary. 5. Hold Coumadin today and tomorrow. We will monitor his pro-time and INR. On exam, there is no evidence of any acute bleeding. His hemoglobin and hematocrit stable. 6. Dr. Medellin will see the patient to manage his dialysis and plans for dialysis today. 7. With the patient complaining of his chest pain, it sounds likely he may have some blockages since his PCI and stents about 7 years ago. We will likely proceed to attempt to do a cardiac cath early next week. 8. Treatment for cellulitis per Dr. Garland. 9. Further recommendations pending per Dr. Duff. Unit #: [id number] #: [id number] Patient: STACIA SANTANA Thank you very much for allowing us to assist in the care. Dictated by... Jackelin Santamaria A.P.R.N. for Marianna Willard/leighann TD: 10/02/2016 04:18 JOB #: [id number] CONSULTATION REPORT X Jackelin Santamaria APRN X CONSULTATION REPORT
--- NOTE | ~2016-10-01 | DS ---
Unit #: [id number] #: [id number] Patient: STACIA SANTANA [id number] [address] [place], [place] [address] [id number] I MR#: [id number] NAME: STACIA SANTANA ROOM: [facility] Age: 56 Sex: M Admission Date: 10/01/2016 : 1960 Discharge Date: 10/18/2016 Attending Physician: Goran Garland M.D. DISCHARGE SUMMARY ADDENDUM Patient was to be discharged on October 13, 2016, but that evening he started having nausea, vomiting, and diarrhea. The patient's discharge was cancelled and was given Phenergan. Clostridium difficile in the stool was done which was negative. Patient was to be discharged on Tuesday, but there was no rehab facility bed available. Patient is stable at this time and is going through his hemodialysis, and he will be discharged home after his hemodialysis. DIAGNOSTIC STUDIES LABORATORY: Labs on discharge: PT is 17.4 and INR is 1.6. Sodium 126, potassium 5.3, BUN 54, and creatinine 4.4. These labs were from October 15. CBC from October 15 showed WBC 12.8, hemoglobin 10.9, hematocrit 35.1, and platelet count of 178,000. IMAGING: Abdominal x-ray was done on October 13, 2016, because of nausea and vomiting. It showed these films are limited because of the obesity. There is no air fluid level. No distended loops of bowel are definitely seen. Please note, on patient's medications, the only change we have from the previous Discharge Summary is Coumadin which is going to be increased to 3 mg as his INR is subtherapeutic. Please note that Colace and Milk of Magnesia are to be discontinued as patient is having diarrhea. A prescription for hydrocodone has been written. PHYSICAL EXAMINATION ON DISCHARGE VITAL SIGNS: Blood pressure is 123/66, respiratory rate 18, pulse 98, and temperature 97.5. CHEST: Decreased air entry bilaterally. CARDIOVASCULAR: S1 and S2 positive. ABDOMEN: Obese. EXTREMITIES: Edema is present. DISCHARGE INSTRUCTIONS Almost the same as the previous Discharge Summary. 1. Patient needs to get PT-INR done every two days, and level of INR needs to be 2. 2. Patient will need to continue hemodialysis as per Renal. Patient will have [facility] transportation for hemodialysis. 3. Medications as per medication reconciliation. 4. Please note, patient's code status is Do Not Resuscitate. 5. Please note, we have had hospice evaluation done, and they have Unit #: [id number] #: [id number] Patient: STACIA SANTANA denied inpatient at this time. Patient and patient's family are pretty aware of patient's poor prognosis. 1. Dictated by... Marianna Valencia/kun TD: 10/18/2016 16:40 JOB #: [id number] DISCHARGE SUMMARY Page 1 of 1 X Atiya Lowry MD X DISCHARGE SUMMARY
--- NOTE | ~2016-10-01 | EKG ---
PATIENT: MAX STACIA UNIT #: [id number] Ventricular Rate: 105 BPM Atrial Rate: 83 BPM QRS Duration: 104 ms Q-T Interval: 364 ms QTC Calculation(Bezet): 481 ms Calculated R Bomoseen: 21 degrees Calculated T Bomoseen: 150 degrees Diagnosis Line: Atrial fibrillation with rapid ventricular Diagnosis Line: response Diagnosis Line: ST and T wave abnormality, consider lateral ischemia Diagnosis Line: Abnormal ECG Diagnosis Line: When compared with ECG of 01-OCT-2016 07:45, Diagnosis Line: (unconfirmed) Diagnosis Line: No significant change was found Diagnosis Line: Confirmed by SARA BULLARD MD ([id number]) on 10/02/2016 Diagnosis Line: 6:05:48 PM INTERPRETING MD: JUAN MIGUEL GUIDRY
--- NOTE | ~2016-10-01 | CR72 ---
[facility] A Service of [facility] & [facility] RADIOLOGY TEXT RESULTS PATIENT: STACIA SANTANA LOCATION: [place] [address] : [birth year] UNIT #: [id number] AGE: [address]: Goran Garland MD SEX: M ORDER DR: [id number] [facility] [address] [place], [place] [address] [id number] I MR#: [id number] Acc #: [id number] NAME: STACIA SANTANA : 1960 SEX: M STUDY DATE/TIME: 10/13/2016 14:19 UNIT: [facility] ROOM: [facility] STUDY DESCRIPTION: CR Chest Single View Portable Attending Physician: Goran Garland M.D. Ordering Physician: Swetha Vera M.D. Primary Care Physician: No Primary Care Physician MEDICAL IMAGING REPORT This report is preliminary unless electronic signature is present EXAM Portable chest. HISTORY Atrial fibrillation with rapid ventricular response, short of air, cough, congestion. COMPARISON STUDIES 10/08/2016 FINDINGS Portable view of the chest demonstrates stent devices overlying the upper chest, presumably represent vascular stents. Cardiomegaly with mild prominence of the pulmonary vasculature and interstitium. Mild thickening of the right minor fissure. No dense consolidation. No sizable effusions. Mild aortic atherosclerotic changes. No visible pneumothorax. Dictated by... Jenna Katz M.D. THIS IS AN ELECTRONICALLY VERIFIED REPORT Jenna Katz M.D. at 10/14/2016 8:42 PM Randall TD: 10/13/2016 18:23 JOB #: [id number] MEDICAL IMAGING REPORT COPY
--- NOTE | ~2016-10-01 | CR72 ---
[facility] A Service of [facility] & [facility] RADIOLOGY TEXT RESULTS PATIENT: STACIA SANTANA LOCATION: [place] [address] : [birth year] UNIT #: [id number] AGE: [address]: Goran Garland MD SEX: M ORDER DR: [id number] [facility] [address] [place], [place] [address] [id number] I MR#: [id number] Acc #: [id number] NAME: STACIA ASNTANA : 1960 SEX: M STUDY DATE/TIME: 10/01/2016 7:40 UNIT: [facility] ROOM: [facility] STUDY DESCRIPTION: CR Chest Single View Portable Attending Physician: Goran Garland M.D. Ordering Physician: Amol Young M.D. Primary Care Physician: Primary Care Physician No MEDICAL IMAGING REPORT This report is preliminary unless electronic signature is present EXAM Portable chest HISTORY Palpitations, shortness of breath, left-sided chest pain since falling today. TECHNIQUE A single view of the chest was obtained and compared with 07/07/2016. FINDINGS The inspiratory effort is shallow. Cardiomegaly is unchanged. No new infiltrates are seen. No displaced rib fractures are noted. No evidence of pneumothorax. IMPRESSION Shallow inspiratory effort. Stable cardiomegaly. No active disease. Dictated by... Rick Eagle M.D. THIS IS AN ELECTRONICALLY VERIFIED REPORT Rick Eagle M.D. at 10/01/2016 3:26 PM ADA/neo TD: 10/01/2016 10:51 JOB #: [id number] MEDICAL IMAGING REPORT COPY
--- NOTE | ~2016-10-01 | HP ---
Unit #: [id number] #: [id number] Patient: STACIA SANTANA [id number] [address] [address] [id number] I MR#: [id number] NAME: STACIA SANTANA ROOM: [address] Age: 56 Sex: M Admission Date: 10/01/2016 : 1960 Attending Physician: Goran Garland M.D. Primary Care Physician: Primary Care Physician No HISTORY AND PHYSICAL ADMISSION DIAGNOSES 1. Status post fall. 2. New-onset atrial fibrillation with RVR. 3. End-stage renal disease on hemodialysis. 4. History of coronary artery disease, status post stent. 5. History of diabetes. 6. History of stroke. 7. History of pulmonary embolism and deep venous thrombosis, status post IVC filter. 8. Coumadin toxicity. HISTORY OF PRESENT ILLNESS Mr. Santana is a 60-year-old gentleman who comes to the emergency room with the complaints of fall times two. He landed on his bottom. Denies any head trauma. Denies any syncope. Initial evaluation in the emergency room found patient in atrial fibrillation with RVR which is a new onset for this patient. The patient also has a history of end-stage renal disease on hemodialysis. Denies any active chest pain, denies any headache, denies any dizziness, fever or chills, nausea, vomiting, diarrhea, or abdominal pain. Complains of generalized body aches. REVIEW OF SYSTEMS Twelve-point review of systems on this patient is basically negative except as above. PAST MEDICAL HISTORY Significant for: 1. History of coronary disease. 2. History of diabetes. 3. History of end-stage renal disease. 4. Hypertension. 5. Stroke. 6. PE/DVT. PAST SURGICAL HISTORY Significant for: 1. IVC filter placement. 2. Cholecystectomy. 3. Hemodialysis access surgery. 4. Cardiac catheterization with stent placement. 5. Left leg skin graft. HOME MEDICATIONS Unit #: [id number] #: [id number] Patient: STACIA SANTANA Apparently he was takin. Coumadin. 2. Glucotrol. 3. Lotrisone cream. 4. Bactroban. 5. Diflucan. 6. Nystatin. 7. Probiotic. 8. Calcium acetate. 9. Levaquin at home. I do not have an exact home medication list on this patient but this will be verified by the pharmacy and patient will be restarted accordingly. ALLERGIES 1. Naprosyn. 2. Contrast dye. SOCIAL HISTORY Denies current tobacco, alcohol, or illicit drugs. FAMILY HISTORY Unremarkable. PHYSICAL EXAMINATION VITAL SIGNS: BP 93/54, heart rate 114, respirations 18, temperature 97.6. GENERAL: The patient is a 56-year-old gentleman in no acute distress. HEENT: Head is atraumatic. Pupils equal, round, reactive to light and accommodation. Extraocular muscles are intact. Oropharynx is clear. NECK: Supple. No mass, no JVD, no bruits. LUNGS: Diminished bilaterally. HEART: S1, S2. No murmurs. ABDOMEN: Soft, nontender, nondistended. LOWER EXTREMITIES: Without any significant cyanosis, clubbing, or edema. NEUROLOGIC: No significant focal deficits. Alert and oriented x3. DIAGNOSTIC STUDIES LABORATORY: Chemistry significant for blood glucose of 287, BUN 63, creatinine 7.9, sodium 124, potassium 5.7, chloride 85. Coagulation panel INR 5.9, PT 69.9, PTT 46.8. Set of cardiac enzymes negative. Hematology with white count 17,000, hemoglobin 11.8, hematocrit 37, platelets 152. IMAGING: Pelvic x-ray negative for any acute fracture. Chest x-ray stable cardiomegaly. No active disease. ASSESSMENT AND PLAN 1. New-onset atrial fibrillation with RVR. Cardiology consult with Dr. Duff. May need an ischemic workup. Check 2D echo, check electrolytes, magnesium and TSH. 2. End-stage renal disease. Continue hemodialysis per Nephrology. Dr. Su has seen the patient. 3. Coumadin toxicity. Hold Coumadin. 4. History of PT and DVT, status post IVC filter. Again, hold Coumadin for now. 5. Leukocytosis. Chest x-ray negative. Follow up CBC in the morning. Consider doing a noncontrast CT of the chest rule out pneumonia. Will Unit #: [id number] #: [id number] Patient: STACIA SANTANA check procalcitonin level. 6. Diabetes. Will resume home medications. 7. Hypertension. Continue home medications. 8. History of CVA. Continue home medications. 9. GI and DVT prophylaxis. Will start on Pepcid. No anticoagulation needed since currently Coumadin toxic. Dictated by Marianna Rader/raven TD: 10/01/2016 16:22 JOB #: [id number] HISTORY AND PHYSICAL X Goran Garland MD HISTORY AND PHYSICAL
--- NOTE | ~2016-10-01 | CR72 ---
[facility] A Service of [facility] & [facility] RADIOLOGY TEXT RESULTS PATIENT: STACIA SANTANA LOCATION: [place] [address] : 60 UNIT #: [id number] AGE: [address]: Goran Garland MD SEX: M ORDER DR: [id number] [facility] [address] [place], [place] [address] [id number] I MR#: [id number] Acc #: [id number] NAME: STACIA SANTANA : 1960 SEX: M STUDY DATE/TIME: 10/08/2016 05:10 UNIT: [facility] ROOM: [facility] STUDY DESCRIPTION: CR Chest Single View Portable Attending Physician: Goran Garland M.D. Ordering Physician: Swetha Vera M.D. Primary Care Physician: Primary Care Physician No MEDICAL IMAGING REPORT This report is preliminary unless electronic signature is present EXAM Portable chest 10/08/2016 0510 hours INDICATION Respiratory failure. Atrial fibrillation. FINDINGS AP portable chest compared with 10/07/2016. Lung volumes remain low. The heart is enlarged. Infiltrates or atelectasis in both bases is largely stable. There are small bilateral pleural effusions. No pneumothorax. Tubing projects over the mediastinum unchanged. There is a vascular stent noted as well. Dictated by... Rick Roche Jr., M.D. THIS IS AN ELECTRONICALLY VERIFIED REPORT Rick Roche Jr., M.D. at 10/08/2016 12:41 PM ARLEN/neo TD: 10/08/2016 10:06 JOB #: [id number] MEDICAL IMAGING REPORT COPY
--- NOTE | ~2016-10-01 | CO ---
Unit #: [id number] #: [id number] Patient: STACIA SANTANA [id number] [address] [id number] MR#: [id number] NAME: STACIA SANTANA ROOM: [facility] Age: 56 Sex: M Admission Date: 10/01/2016 : 1960 Attending Physician: Goran Garland M.D. Consultation Date: 10/02/2016 CONSULTATION REPORT REASON FOR CONSULTATION Painful wounds, right hand. HISTORY OF PRESENT ILLNESS Mr. Santana is a 56-year-old gentleman, who is admitted to the hospital with complaints of chest pain. He has a history of coronary artery disease with multiple prior coronary stents. He also has a history of atrial fibrillation. He has chronic kidney disease, requiring hemodialysis. He has had multiple access procedures in all 4 extremities. He states that he has a shunt in his right thigh which is still working, but it is not being used because he bled extensively the last time it was used. He now has a fistula in his right upper arm which was placed by Dr. Koroma at [facility]. He states that the fistula has only been used for short period of time. However, he now has wounds on his right hand, which are very painful. He is not aware of any trauma to his hand. He states that the wounds have been getting progressively worse. Consultation was requested to evaluate the patient's right hand wounds because of concern that they may be related to ischemia from his right arm fistula. PAST MEDICAL HISTORY Type 2 diabetes mellitus, hypertension, hyperlipidemia, morbid obesity, coronary artery disease, previous stroke, history of deep vein thrombosis with pulmonary embolus, history of perineal and scrotal cellulitis, and history of obstructive sleep apnea. MEDICATIONS Metoprolol 12.5 mg p.o. b.i.d., amiodarone 400 mg p.o. b.i.d., glipizide 5 mg p.o. b.i.d., Bactroban topically to leg wound b.i.d., clindamycin 300 mg p.o. every 6 hours, Pepcid 20 mg p.o. daily, and sliding scale insulin. ALLERGIES Naproxen. SOCIAL HISTORY He lives at home. He ambulates with a walker or cane, but he also has a motorized wheelchair. He does not smoke. He does not drink alcohol. REVIEW OF SYSTEMS Positive for chest pain. Positive for nonhealing wounds on his right leg. Otherwise, 10-point review of systems is negative. Unit #: [id number] #: [id number] Patient: STACIA SANTANA PHYSICAL EXAMINATION VITALS SIGNS: Temperature 98.4, pulse 96, blood pressure 116/80, respirations 18. GENERAL APPEARANCE: Obese, chronically ill-appearing, white male. Looks older than his stated age. Cooperative. Very poor historian. No acute distress. HEENT: Extraocular movements intact. No xanthelasma of the eyelids. Oral mucosa is pink and moist. NECK: No cervical bruits. No JVD. LUNGS: Clear bilaterally. No use of accessory respiratory muscles. HEART: Irregular rate and rhythm. No murmurs. No extra heart sounds. ABDOMEN: Obese, but soft and nontender. No palpable masses. No palpable hepatomegaly or splenomegaly. EXTREMITIES: Both legs are cool and cyanotic. There is a wound on the lateral aspect of the right calf. There is a fistula in the right upper arm with a palpable thrill. There are scars consistent with previous basilic vein harvest. There are wounds on the lateral aspect of the right fifth finger over the distal interphalangeal joint and over the middle finger at the proximal interphalangeal joint. Both of these wounds on the hand are dry eschars without erythema or fluctuance. Radial and ulnar pulses are not palpable on either side. Even with compression of his fistula, I cannot palpate a right radial pulse. DIAGNOSTIC STUDIES IMAGING STUDIES: Evaluation during this admission includes a transthoracic echocardiogram which demonstrates an ejection fraction of 10% with significant aortic stenosis. IMPRESSION 1. Ischemic wounds of the right hand. This may be related to ischemic steal from his right arm fistula. It appears that options for alternate dialysis access are very limited as he has had access placed in all 4 extremities previously. He may be a candidate to undergo some type of revision of his right arm fistula with something like distal revascularization and interval ligation procedure. However, he appears to be high risk for any type of surgical intervention. 2. Chronic kidney disease, requiring hemodialysis. 3. Coronary artery disease. 4. History of congestive heart failure. 5. Chronic atrial fibrillation. 6. History of deep venous thrombosis with pulmonary embolus, status post inferior vena cava filter. 7. Type 2 diabetes mellitus. 8. Hypertension. 9. Hyperlipidemia. 10. Morbid obesity. 11. Obstructive sleep apnea. 12. Previous stroke. PLAN The patient is scheduled to undergo cardiac catheterization and possible cardioversion. My recommendation would be to perform a fistulogram on his right arm when he is medically stable. Our group can perform this for him at [facility] or if he is stable, he can follow up with his original vascular surgeons at [facility]. Dictated by... Duncan Reid M.D. Unit #: [id number] #: [id number] Patient: STACIA SANTANA SBS/modl TD: 10/03/2016 22:18 JOB #: [id number] CC: Gayle Medellin M.D. CONSULTATION REPORT X Duncan Ried MD X CONSULTATION REPORT
[~2016-10-01 07:37] MED LIST: BACTROBAN15 GM TOP; BLOOD PRESSURE MED; CALCIUM ACETAT667 M1 PO; COUMADIN3 MG PO; DIABETES HEALT1 EAC1 PO; DIFLUCAN200 MG PO; GLUCOTROL PO; LEVAQUIN250 MG PO; LOTRISONE CREAM45 GM TOP; NYSTATIN5 ML PO; PROBIOTIC250 MG PO; SENSIPAR60 MG PO
[2016-10-01 08:24] LABS: BASOPHIL% 0.3 % (0-2.5); EOSINOPHIL% 0.1 % (0.0-7.0); HEMOGLOBIN 11.8 gm/dL (13.0-16.0); LYMPHOCYTE# 0.7 X10e3 (1.0-3.5); LYMPHOCYTE% 4.2 % (17.0-45.0); MEAN CELL VOLUME 92.2 FL (83-96); MEAN CORPUSCULAR HEMOGLOBIN 29.3 PG (28-34); MEAN CORPUSCULAR HGB CONC 31.8 g/dL (30-36); MEAN PLATELET VOLUME 9.3 FL (6.5-11.5); MONOCYTE# 0.9 X10e3 (0-1.0); MONOCYTE% 5.2 % (3.0-12.0); NEUTROPHIL# 15.7 X10e3 (1.5-7.1); NEUTROPHIL% 90.2 % (40-75); PLATELET COUNT 152 X10e3 (140-420); RED BLOOD COUNT 4.01 X10e (3.90-5.60); RED CELL DISTRIBUTION WIDTH 18.6 % (11.0-15.5); WHITE BLOOD COUNT 17.3 X10e3 (4.0-10.5)
[2016-10-01 08:29] LABS: DIFF IND YES
[2016-10-01 08:32] LABS: POC - CKMB 5.8 ng/mL (0.0-7.9); POC - TROPONIN <0.05 ng/mL (<=0.05)
[2016-10-01 08:34] LABS: PROTHROMBIN TIME (PATIENT) 65.9 SECONDS (9.6-11.5)
[2016-10-01 08:36] LABS: INR 5.9
[2016-10-01 08:45] LABS: ANISOCYTOSIS SL; PLATELET ESTIMATE NORMAL (NORMAL)
[2016-10-01 09:01] LABS: ALBUMIN SERUM 2.7 g/dL (3.5-5.0); BILIRUBIN, DIRECT 0.3 mg/dL (0.0-0.2); BILIRUBIN,INDIRECT 0.4 mg/dL (0.0-0.9); BILIRUBIN,TOTAL 0.7 mg/dL (0.2-2.0); BUN/CREATININE RATIO 7.97; CALCIUM SERUM 9.2 mg/dL (8.4-10.2); CREATININE SERUM 7.9 mg/dL (0.6-1.4); GLOM FILT RATE Estimated 7.6 mL/min (>60); PROTEIN TOTAL SERUM 6.5 g/dL (6.0-8.3)
[2016-10-01 09:03] LABS: POTASSIUM 5.7 mmol/L (3.5-5.1)
[2016-10-01] MEDS ORDERED: CLEOCIN HCL300 M1 PO (09:52)
[2016-10-01] MEDS ORDERED: LIBRAX CAPSULE1 CA1 PO (09:53)
[2016-10-02 06:12] LABS: BASOPHIL# 0.1 X10e3 (0-0.3); BASOPHIL% 0.9 % (0-2.5); EOSINOPHIL# 0.1 X10e3 (0-0.7); EOSINOPHIL% 0.5 % (0.0-7.0); HEMATOCRIT 38.4 % (38.0-50.0); HEMOGLOBIN 12.2 gm/dL (13.0-16.0); LYMPHOCYTE# 0.8 X10e3 (1.0-3.5); LYMPHOCYTE% 6.8 % (17.0-45.0); MEAN CELL VOLUME 92.8 FL (83-96); MEAN CORPUSCULAR HEMOGLOBIN 29.4 PG (28-34); MEAN CORPUSCULAR HGB CONC 31.7 g/dL (30-36); MEAN PLATELET VOLUME 9.2 FL (6.5-11.5); MONOCYTE# 0.9 X10e3 (0-1.0); MONOCYTE% 7.8 % (3.0-12.0); NEUTROPHIL# 10.2 X10e3 (1.5-7.1); PLATELET COUNT 174 X10e3 (140-420); RED BLOOD COUNT 4.14 X10e (3.90-5.60); RED CELL DISTRIBUTION WIDTH 19.2 % (11.0-15.5); WHITE BLOOD COUNT 12.2 X10e3 (4.0-10.5)
[2016-10-02 06:21] LABS: DIFF IND NO
[2016-10-02 07:02] LABS: PROTHROMBIN TIME (PATIENT) 91.1 SECONDS (9.6-11.5)
[2016-10-02 07:07] LABS: INR 8.1
[2016-10-02 07:17] LABS: BUN/CREATININE RATIO 6.14; CALCIUM SERUM 9.1 mg/dL (8.4-10.2); CREATININE SERUM 5.7 mg/dL (0.6-1.4); POTASSIUM 4.7 mmol/L (3.5-5.1)
[2016-10-02 07:46] LABS: CHOLESTEROL 99 mg/dL (0-200); HDL CHOLESTEROL 23 mg/dL (29-75); LDL CHOLESTEROL 59 mg/dL (-130); LDL/HDL RATIO 3 RATIO (0-4); TRIGLYCERIDES 87 mg/dL (10-160)
[2016-10-02 21:19] LABS: PROTHROMBIN TIME (PATIENT) 50.8 SECONDS (9.6-11.5)
[2016-10-02 21:23] LABS: INR 4.6
[2016-10-03 07:00] LABS: HEMATOCRIT 36.9 % (38.0-50.0); HEMOGLOBIN 11.4 gm/dL (13.0-16.0); MEAN CELL VOLUME 93.8 FL (83-96); MEAN CORPUSCULAR HGB CONC 30.9 g/dL (30-36); MEAN PLATELET VOLUME 9.1 FL (6.5-11.5); RED BLOOD COUNT 3.93 X10e (3.90-5.60); RED CELL DISTRIBUTION WIDTH 18.7 % (11.0-15.5); WHITE BLOOD COUNT 14.2 X10e3 (4.0-10.5)
[2016-10-03 07:18] LABS: PROTHROMBIN TIME (PATIENT) 58.8 SECONDS (9.6-11.5)
[2016-10-03 07:20] LABS: INR 5.3
[2016-10-03 07:39] LABS: BUN/CREATININE RATIO 6.86; CALCIUM SERUM 8.9 mg/dL (8.4-10.2); CREATININE SERUM 6.7 mg/dL (0.6-1.4); GLOM FILT RATE Estimated 9.1 mL/min (>60); PHOSPHOROUS 5.8 mg/dL (2.5-4.6); POTASSIUM 4.5 mmol/L (3.5-5.1)
[2016-10-03 08:00] LABS: PROCALCITONIN 0.74 NG/ML
[2016-10-03 17:02] LABS: ARTERIAL BLD GAS O2 SATURATION 98.5 % (90.0-100.0); ARTERIAL BLOOD GAS CARBOXY HB 0.7 %sat (0.0-9.0); ARTERIAL BLOOD GAS HCO3 27.1 mmol/L; ARTERIAL BLOOD GAS MET HB 0.7 %sat (0.0-2.0); ARTERIAL BLOOD GAS pH 7.329 (7.350-7.450)
[2016-10-03 17:03] LABS: ARTERIAL BLOOD GAS PCO2 51.5 mmHg (35.0-45.0); ARTERIAL DRAW? YES
[2016-10-03 17:04] LABS: ARTERIAL BLOOD GAS ART SITE ARTERIAL LINE; ARTERIAL BLOOD GAS DELIVERY NON REBREATHER
[2016-10-03 17:07] LABS: ARTERIAL BLD GAS O2 SATURATION 55.5 % (90.0-100.0); ARTERIAL BLOOD GAS CARBOXY HB 1.1 %sat (0.0-9.0); ARTERIAL BLOOD GAS HCO3 29.7 mmol/L; ARTERIAL BLOOD GAS MET HB 0.7 %sat (0.0-2.0); ARTERIAL BLOOD GAS pH 7.269 (7.350-7.450)
[2016-10-03 17:08] LABS: ARTERIAL BLOOD GAS PCO2 64.8 mmHg (35.0-45.0)
[2016-10-03 17:10] LABS: ARTERIAL BLOOD GAS PO2 34.8 mmHg (80.0-100); ARTERIAL DRAW? NO
[2016-10-04 00:49] LABS: INR 3.8; PROTHROMBIN TIME (PATIENT) 42.3 SECONDS (9.6-11.5)
[2016-10-04 06:00] LABS: INR 3.9; PROTHROMBIN TIME (PATIENT) 42.5 SECONDS (9.6-11.5)
[2016-10-04 06:17] LABS: HEMATOCRIT 40.3 % (38.0-50.0); HEMOGLOBIN 12.6 gm/dL (13.0-16.0); MEAN CELL VOLUME 93.4 FL (83-96); MEAN CORPUSCULAR HEMOGLOBIN 29.3 PG (28-34); MEAN CORPUSCULAR HGB CONC 31.4 g/dL (30-36); RED BLOOD COUNT 4.32 X10e (3.90-5.60); RED CELL DISTRIBUTION WIDTH 19.2 % (11.0-15.5); WHITE BLOOD COUNT 15.1 X10e3 (4.0-10.5)
[2016-10-04 06:35] LABS: BUN/CREATININE RATIO 6.13; CALCIUM SERUM 9.1 mg/dL (8.4-10.2); GLOM FILT RATE Estimated 14.9 mL/min (>60); POTASSIUM 4.2 mmol/L (3.5-5.1)
[2016-10-04 06:36] LABS: CREATININE SERUM 4.4 mg/dL (0.6-1.4)
[2016-10-05 05:33] LABS: BASOPHIL# 0.1 X10e3 (0-0.3); BASOPHIL% 0.5 % (0-2.5); EOSINOPHIL% 0.2 % (0.0-7.0); HEMATOCRIT 39.8 % (38.0-50.0); HEMOGLOBIN 12.4 gm/dL (13.0-16.0); LYMPHOCYTE# 0.9 X10e3 (1.0-3.5); LYMPHOCYTE% 6.5 % (17.0-45.0); MEAN CELL VOLUME 93.4 FL (83-96); MEAN PLATELET VOLUME 8.5 FL (6.5-11.5); MONOCYTE% 7.2 % (3.0-12.0); NEUTROPHIL% 85.6 % (40-75); PLATELET COUNT 165 X10e3 (140-420); RED BLOOD COUNT 4.26 X10e (3.90-5.60); RED CELL DISTRIBUTION WIDTH 19.2 % (11.0-15.5); WHITE BLOOD COUNT 13.9 X10e3 (4.0-10.5)
[2016-10-05 05:34] LABS: INR 4.1; PROTHROMBIN TIME (PATIENT) 44.9 SECONDS (9.6-11.5)
[2016-10-05 05:36] LABS: DIFF IND NO
[2016-10-05 06:25] LABS: BUN/CREATININE RATIO 7.81; CALCIUM SERUM 9.1 mg/dL (8.4-10.2); CREATININE SERUM 5.5 mg/dL (0.6-1.4); GLOM FILT RATE Estimated 11.5 mL/min (>60); POTASSIUM 4.7 mmol/L (3.5-5.1)
[2016-10-06 05:45] LABS: BASOPHIL% 0.4 % (0-2.5); EOSINOPHIL# 0.1 X10e3 (0-0.7); EOSINOPHIL% 0.4 % (0.0-7.0); HEMATOCRIT 39.1 % (38.0-50.0); HEMOGLOBIN 12.1 gm/dL (13.0-16.0); LYMPHOCYTE# 0.9 X10e3 (1.0-3.5); LYMPHOCYTE% 7.3 % (17.0-45.0); MEAN CORPUSCULAR HEMOGLOBIN 29.1 PG (28-34); MEAN CORPUSCULAR HGB CONC 30.9 g/dL (30-36); MONOCYTE# 0.9 X10e3 (0-1.0); MONOCYTE% 7.1 % (3.0-12.0); NEUTROPHIL# 10.9 X10e3 (1.5-7.1); NEUTROPHIL% 84.8 % (40-75); PLATELET COUNT 139 X10e3 (140-420); RED BLOOD COUNT 4.15 X10e (3.90-5.60); RED CELL DISTRIBUTION WIDTH 19.5 % (11.0-15.5); WHITE BLOOD COUNT 12.9 X10e3 (4.0-10.5)
[2016-10-06 05:51] LABS: DIFF IND NO
[2016-10-06 05:57] LABS: INR 3.8; PROTHROMBIN TIME (PATIENT) 42.2 SECONDS (9.6-11.5)
[2016-10-06 06:26] LABS: ALBUMIN SERUM 2.6 g/dL (3.5-5.0); BILIRUBIN,TOTAL 0.7 mg/dL (0.2-2.0); BUN/CREATININE RATIO 7.44; CALCIUM SERUM 8.8 mg/dL (8.4-10.2); CREATININE SERUM 4.7 mg/dL (0.6-1.4); GLOM FILT RATE Estimated 13.8 mL/min (>60); MAGNESIUM 1.9 mg/dL (1.6-3.0); PHOSPHOROUS 5.1 mg/dL (2.5-4.6); POTASSIUM 4.5 mmol/L (3.5-5.1); PROTEIN TOTAL SERUM 6.5 g/dL (6.0-8.3)
[2016-10-08 06:28] LABS: BASOPHIL# 0.1 X10e3 (0-0.3); BASOPHIL% 0.7 % (0-2.5); EOSINOPHIL# 0.1 X10e3 (0-0.7); EOSINOPHIL% 1.2 % (0.0-7.0); HEMATOCRIT 37.2 % (38.0-50.0); HEMOGLOBIN 11.6 gm/dL (13.0-16.0); LYMPHOCYTE# 1.2 X10e3 (1.0-3.5); LYMPHOCYTE% 10.3 % (17.0-45.0); MEAN CELL VOLUME 93.7 FL (83-96); MEAN CORPUSCULAR HEMOGLOBIN 29.2 PG (28-34); MEAN CORPUSCULAR HGB CONC 31.2 g/dL (30-36); MEAN PLATELET VOLUME 9.3 FL (6.5-11.5); MONOCYTE% 8.4 % (3.0-12.0); NEUTROPHIL# 9.4 X10e3 (1.5-7.1); NEUTROPHIL% 79.4 % (40-75); PLATELET COUNT 140 X10e3 (140-420); RED BLOOD COUNT 3.97 X10e (3.90-5.60); RED CELL DISTRIBUTION WIDTH 19.1 % (11.0-15.5); WHITE BLOOD COUNT 11.8 X10e3 (4.0-10.5)
[2016-10-08 06:33] LABS: DIFF IND NO
[2016-10-08 06:43] LABS: ALBUMIN SERUM 2.6 g/dL (3.5-5.0); BILIRUBIN,TOTAL 0.7 mg/dL (0.2-2.0); BUN/CREATININE RATIO 7.7; CALCIUM SERUM 8.6 mg/dL (8.4-10.2); CREATININE SERUM 4.8 mg/dL (0.6-1.4); GLOM FILT RATE Estimated 13.4 mL/min (>60); POTASSIUM 4.7 mmol/L (3.5-5.1)
[2016-10-08 11:01] LABS: INR 2.6; PROTHROMBIN TIME (PATIENT) 28.8 SECONDS (9.6-11.5)
[2016-10-09 05:15] LABS: HEMATOCRIT 35.2 % (38.0-50.0); HEMOGLOBIN 10.9 gm/dL (13.0-16.0); MEAN CELL VOLUME 94.4 FL (83-96); MEAN CORPUSCULAR HEMOGLOBIN 29.3 PG (28-34); MEAN CORPUSCULAR HGB CONC 31.1 g/dL (30-36); MEAN PLATELET VOLUME 9.1 FL (6.5-11.5); RED BLOOD COUNT 3.73 X10e (3.90-5.60); RED CELL DISTRIBUTION WIDTH 19.6 % (11.0-15.5)
[2016-10-09 05:34] LABS: INR 2.4; PROTHROMBIN TIME (PATIENT) 25.6 SECONDS (9.6-11.5)
[2016-10-09 05:57] LABS: BUN/CREATININE RATIO 6.94; CALCIUM SERUM 8.7 mg/dL (8.4-10.2); CREATININE SERUM 3.6 mg/dL (0.6-1.4); GLOM FILT RATE Estimated 18.7 mL/min (>60); POTASSIUM 4.5 mmol/L (3.5-5.1)
[2016-10-10 05:45] LABS: HEMATOCRIT 35.5 % (38.0-50.0); HEMOGLOBIN 11.1 gm/dL (13.0-16.0); MEAN CELL VOLUME 93.5 FL (83-96); MEAN CORPUSCULAR HEMOGLOBIN 29.1 PG (28-34); MEAN CORPUSCULAR HGB CONC 31.2 g/dL (30-36); MEAN PLATELET VOLUME 8.9 FL (6.5-11.5); RED BLOOD COUNT 3.8 X10e (3.90-5.60); RED CELL DISTRIBUTION WIDTH 19.1 % (11.0-15.5); WHITE BLOOD COUNT 17.1 X10e3 (4.0-10.5)
[2016-10-10 06:09] LABS: ALBUMIN SERUM 2.7 g/dL (3.5-5.0); BILIRUBIN,TOTAL 0.7 mg/dL (0.2-2.0); BUN/CREATININE RATIO 8.63; CALCIUM SERUM 8.9 mg/dL (8.4-10.2); CREATININE SERUM 4.4 mg/dL (0.6-1.4); GLOM FILT RATE Estimated 14.9 mL/min (>60); PROTEIN TOTAL SERUM 6.6 g/dL (6.0-8.3)
[2016-10-10 06:34] LABS: INR 2.2; PROTHROMBIN TIME (PATIENT) 23.8 SECONDS (9.6-11.5)
[2016-10-11 06:55] LABS: HEMATOCRIT 37.7 % (38.0-50.0); HEMOGLOBIN 11.5 gm/dL (13.0-16.0); MEAN CELL VOLUME 93.9 FL (83-96); MEAN CORPUSCULAR HEMOGLOBIN 28.6 PG (28-34); MEAN CORPUSCULAR HGB CONC 30.5 g/dL (30-36); MEAN PLATELET VOLUME 8.7 FL (6.5-11.5); RED BLOOD COUNT 4.01 X10e (3.90-5.60); RED CELL DISTRIBUTION WIDTH 19.9 % (11.0-15.5); WHITE BLOOD COUNT 17.8 X10e3 (4.0-10.5)
[2016-10-11 07:05] LABS: INR 2.2; PROTHROMBIN TIME (PATIENT) 23.4 SECONDS (9.6-11.5)
[2016-10-11 07:26] LABS: BUN/CREATININE RATIO 10.37; CALCIUM SERUM 8.9 mg/dL (8.4-10.2); CREATININE SERUM 5.3 mg/dL (0.6-1.4); POTASSIUM 4.9 mmol/L (3.5-5.1)
[2016-10-12 05:28] LABS: HEMATOCRIT 34.3 % (38.0-50.0); HEMOGLOBIN 10.5 gm/dL (13.0-16.0); MEAN CELL VOLUME 94.7 FL (83-96); MEAN CORPUSCULAR HEMOGLOBIN 28.9 PG (28-34); MEAN CORPUSCULAR HGB CONC 30.5 g/dL (30-36); MEAN PLATELET VOLUME 8.8 FL (6.5-11.5); RED BLOOD COUNT 3.62 X10e (3.90-5.60); RED CELL DISTRIBUTION WIDTH 20.1 % (11.0-15.5); WHITE BLOOD COUNT 12.6 X10e3 (4.0-10.5)
[2016-10-12 05:35] LABS: INR 1.8; PROTHROMBIN TIME (PATIENT) 19.7 SECONDS (9.6-11.5)
[2016-10-12 06:37] LABS: BUN/CREATININE RATIO 10.27; CALCIUM SERUM 8.7 mg/dL (8.4-10.2); CREATININE SERUM 3.6 mg/dL (0.6-1.4); GLOM FILT RATE Estimated 18.7 mL/min (>60); POTASSIUM 4.6 mmol/L (3.5-5.1)
[2016-10-15 16:18] LABS: HEMATOCRIT 35.1 % (38.0-50.0); HEMOGLOBIN 10.9 gm/dL (13.0-16.0); MEAN CELL VOLUME 93.3 FL (83-96); MEAN CORPUSCULAR HEMOGLOBIN 28.9 PG (28-34); RED BLOOD COUNT 3.76 X10e (3.90-5.60); RED CELL DISTRIBUTION WIDTH 19.5 % (11.0-15.5); WHITE BLOOD COUNT 12.8 X10e3 (4.0-10.5)
[2016-10-15 16:48] LABS: BUN/CREATININE RATIO 12.27; CALCIUM SERUM 8.2 mg/dL (8.4-10.2); CREATININE SERUM 4.4 mg/dL (0.6-1.4); GLOM FILT RATE Estimated 14.9 mL/min (>60); POTASSIUM 5.3 mmol/L (3.5-5.1)
[2016-10-18 08:23] LABS: INR 1.6; PROTHROMBIN TIME (PATIENT) 17.4 SECONDS (9.6-11.5)
[2016-10-19] MEDS ORDERED: DIPHENYDRAMINE25 MG PO (14:18)
[2016-10-19] MEDS ORDERED: LOPRESSOR PO (14:39)
[2016-10-19] MEDS ORDERED: DOCUSATE SODIU100 MG PO (14:41)
[2016-10-19] MEDS ORDERED: MILK OF MAGNESIA PO (14:42)
[2016-10-19] MEDS ORDERED: PRO-AMATINE5 M1 PO (14:43)
[2016-10-19] MEDS ORDERED: HYDROCODONE/APA1 T15 PO (14:45)
[2016-10-19] MEDS ORDERED: PROTONIX20 MG PO (14:46)
== END 2016-10-19 15:34 | DRG 291 ==
LOC: CED 07:37 → CEDOF 09:22 → C5C 10-02 12:18 → CICCU3 10-03 15:44 → C5B 10-07 11:16
PROVIDERS: Emergency Medicine; Hospitalist; Internal Medicine; Internal Medicine Cardiovascular Disease; Internal Medicine Nephrology; Internal Medicine Pulmonary Disease; Nurse Practitioner; Nurse Practitioner Family
PROC: 5A1D60Z (ICD-10-PCS; 2016-10-01)
PROC: B24BYZZ Ultrasonography of Heart with Aorta using Other Contrast (ICD-10-PCS; 2016-10-01)
PROC: 30233L1 Transfusion of Nonautologous Fresh Plasma into Peripheral Vein, Percutaneous Approach (ICD-10-PCS; 2016-10-02)
PROC: 30233K1 Transfusion of Nonautologous Frozen Plasma into Peripheral Vein, Percutaneous Approach (ICD-10-PCS; 2016-10-02)
PROC: 04HL33Z Insertion of Infusion Device into Left Femoral Artery, Percutaneous Approach (ICD-10-PCS; principal; 2016-10-03)
PROC: 05H433Z Insertion of Infusion Device into Left Innominate Vein, Percutaneous Approach (ICD-10-PCS; 2016-10-03)
PROC: B54NZZA Ultrasonography of Left Upper Extremity Veins, Guidance (ICD-10-PCS; 2016-10-03)
DX: I13.2 Hypertensive heart and chronic kidney disease with heart failure and with stage 5 chronic kidney disease, or end stage renal disease (principal); R57.0 Cardiogenic shock; N17.9 Acute kidney failure, unspecified; E11.52 Type 2 diabetes mellitus with diabetic peripheral angiopathy with gangrene; N18.6 End stage renal disease; I95.9 Hypotension, unspecified; L03.116 Cellulitis of left lower limb; I50.23 Acute on chronic systolic (congestive) heart failure; Z68.41 Body mass index [BMI] 40.0-44.9, adult; E87.1 Hypo-osmolality and hyponatremia; W19.XXXA Unspecified fall, initial encounter; Z86.73 Personal history of transient ischemic attack (TIA), and cerebral infarction without residual deficits; Z86.711 Personal history of pulmonary embolism; Z86.718 Personal history of other venous thrombosis and embolism; Z79.01 Long term (current) use of anticoagulants; Z90.49 Acquired absence of other specified parts of digestive tract; Z79.84 Long term (current) use of oral hypoglycemic drugs; Z91.041 Radiographic dye allergy status; D72.829 Elevated white blood cell count, unspecified; G47.33 Obstructive sleep apnea (adult) (pediatric); I73.9 Peripheral vascular disease, unspecified; E66.9 Obesity, unspecified; Z87.891 Personal history of nicotine dependence; I25.119 Atherosclerotic heart disease of native coronary artery with unspecified angina pectoris; E11.621 Type 2 diabetes mellitus with foot ulcer; L97.529 Non-pressure chronic ulcer of other part of left foot with unspecified severity; E87.5 Hyperkalemia; I48.2 Chronic atrial fibrillation; Z99.2 Dependence on renal dialysis; R51 Headache; I25.5 Ischemic cardiomyopathy; S30.1XXA Contusion of abdominal wall, initial encounter; Z66 Do not resuscitate; E11.649 Type 2 diabetes mellitus with hypoglycemia without coma; R19.7 Diarrhea, unspecified
CPT/HCPCS: 36600; 70450; 71010; 72170; 73630; 74000; 80048; 80053; 80061; 80076; 82308; 82553; 82803; 82947; 83036; 83605; 83735; 83880; 84100; 84439; 84443; 84484; 85025; 85027; 85610; 86900; 86901; 87040; 87340; 87493; 87651; 93005; 93306; 93922; 93926; 94660; 94760; 94761; 97110; 97162; 97167; 97530; 97535; 99291; G8978-GP; G8979-GP; G8987-GO; G8988-GO; J1265; J1815; J2405; P9059; Q4081